=== PATIENT | female | born 1955 | race Hispanic/Latino ===

== ENCOUNTER 2018-11-21 00:28 | Emergency (ER) | payer OTHER ==
[2018-11-21 00:50] LABS: BASOPHILS % (AUTO) 1.1 % (0.0-5.0); EOSINOPHILS % (AUTO) 1.7 % (0.0-8.0); HEMATOCRIT 45.4 % (36-48); LYMPHOCYTES % (AUTO) 37.9 % (21.0-51.0); MEAN CORPUSCULAR HGB CONC 33.6 g/dL (32.0-36.0); MEAN CORPUSCULAR VOLUME 92.4 fL (79-99); MONOCYTES % (AUTO) 5.8 % (3.0-13.0); NEUTROPHILS % (AUTO) 53.5 % (40.0-77.0); NUCLEATED RED BLOOD CELLS 0.1 % (0.0-0.19); PLATELET COUNT (AUTO) 284 K/uL (130-400); RED BLOOD CELL COUNT(AUTO) 4.92 MIL/uL (4.00-5.50); RED CELL DISTRIBUTION WIDTH 13.7 % (11.0-15.5); WHITE BLOOD COUNT (AUTO) 6.7 K/uL (4.8-10.8)
[2018-11-21] MEDS ORDERED: METOPROLOL TARTRATE 1 MG/ML 5ML VIAL IV ONE ×4 (00:57→02:54)
[2018-11-21] MEDS ORDERED: SODIUM CHLORIDE 0.9% 500ML 500 ML IV ONE (00:58)
[2018-11-21 00:59] LABS: POTASSIUM 4.1 mmol/L (3.5-5.1)
[2018-11-21 01:04] LABS: ALBUMIN 4.2 g/dL (3.5-5.0); BILIRUBIN,TOTAL 0.2 mg/dL (0.2-1.0); TOTAL PROTEIN, SERUM 7.6 g/dL (6.0-8.3)
[2018-11-21] MEDS ORDERED: ASPIRIN 325 MG TABLET ONE (01:08)
[2018-11-21 01:10] LABS: INR 0.88 (0.85-1.15); PARTIAL THROMBOPLASTIN TIME 25.4 SEC (26.3-35.5); PROTHROMBIN TIME 9.3 SEC (9.6-11.6)
[2018-11-21 01:20] LABS: APPEARANCE,URINE CLEAR (CLEAR); BILIRUBIN,URINE NEGATIVE (NEGATIVE); COLOR,URINE YELLOW (YELLOW); GLUCOSE, URINE (UA) >=1000 mg/dL (NEGATIVE); KETONES,URINE NEGATIVE (NEGATIVE); LEUKOCYTE ESTERASE ,URINE NEGATIVE (NEGATIVE); NITRATE,URINE NEGATIVE (NEGATIVE); OCCULT BLOOD,URINE NEGATIVE (NEGATIVE); PH,URINE 7.5 (5.0-8.0); PROTEIN,URINE NEGATIVE (NEGATIVE); UROBILINOGEN,URINE 0.2 mg/dL (0.2-1.0)
[2018-11-21 01:28] LABS: AMPHET/METH SCREEN,URINE NEGATIVE (NEGATIVE); BARBITURATE SCREEN, URINE NEGATIVE (NEGATIVE); BENZODIAZEPINES SCREEN,URINE NEGATIVE (NEGATIVE); CANNABINOID SCREEN,URINE NEGATIVE (NEGATIVE); COCAINE SCREEN,URINE NEGATIVE (NEGATIVE); OPIATE SCREEN,URINE NEGATIVE (NEGATIVE); PHENCYCLIDINE SCREEN,URINE NEGATIVE (NEGATIVE)
[2018-11-21 01:29] LABS: BACTERIA,URINE Rare /HPF (None Seen); RBC,URINE 0-1 /HPF (0-1); SQUAMOUS EPITHELIAL CELL,UR 0-2 /HPF (0-2); WBC,URINE 0-1 /HPF (0-1)
[2018-11-21] MEDS ORDERED: ONDANSETRON HCL 4 MG/2 ML VIAL ONE (03:09)
[2018-11-21] MEDS ORDERED: MIDAZOLAM HCL 5 MG/ML 2ML VIAL IV ONE (03:09)
[2018-11-21] MEDS ORDERED: SODIUM CHLORIDE 0.9% 1000ML 1,000 ML IV ONE (03:10)
[2018-11-21] MEDS ORDERED: MORPHINE SULFATE 4 MG/1ML SYG ONE (03:10)
== END 2018-11-21 05:41 | disposition home or self-care (01) ==
LOC: EDH 00:28
DX: I48.91 Unspecified atrial fibrillation (principal); E11.9 Type 2 diabetes mellitus without complications; I10 Essential (primary) hypertension
CPT/HCPCS: 36415; 71045; 80053; 80305; 81001; 82550; 83880; 84484 ×2; 85025; 85610; 85730; 93005 ×2; 96374; 96375; 99285; J2250; J2270; J2405; J3490 ×4; J7030; J7040

== ENCOUNTER 2018-11-29 23:43 | Observation (INO) | payer OTHER ==
[~2018-11-29] VITALS: Ht 167.6 cm; Wt 77.1 kg
[2018-11-30 00:25] LABS: BASOPHILS % (AUTO) 0.7 % (0.0-5.0); EOSINOPHILS % (AUTO) 1.3 % (0.0-8.0); HEMATOCRIT 39.8 % (36-48); LYMPHOCYTES % (AUTO) 35.7 % (21.0-51.0); MEAN CORPUSCULAR HEMOGLOBIN 31.3 pg (27.0-33.0); MEAN CORPUSCULAR VOLUME 92.1 fL (79-99); MONOCYTES % (AUTO) 6.1 % (3.0-13.0); NEUTROPHILS % (AUTO) 56.2 % (40.0-77.0); PLATELET COUNT (AUTO) 270 K/uL (130-400); RED BLOOD CELL COUNT(AUTO) 4.32 MIL/uL (4.00-5.50); RED CELL DISTRIBUTION WIDTH 13.7 % (11.0-15.5); WHITE BLOOD COUNT (AUTO) 6.6 K/uL (4.8-10.8)
[2018-11-30 00:37] LABS: ALBUMIN 4.2 g/dL (3.5-5.0); CREATININE 1.1 mg/dL (0.5-1.5); POTASSIUM 3.7 mmol/L (3.5-5.1)
[2018-11-30 00:39] LABS: APPEARANCE,URINE Clear (CLEAR); BILIRUBIN,URINE Negative (NEGATIVE); COLOR,URINE Yellow (YELLOW); GLUCOSE, URINE (UA) >=1000 mg/dL (NEGATIVE); KETONES,URINE Negative (NEGATIVE); LEUKOCYTE ESTERASE ,URINE Negative (NEGATIVE); NITRATE,URINE Negative (NEGATIVE); OCCULT BLOOD,URINE Negative (NEGATIVE); PROTEIN,URINE Negative (NEGATIVE); UROBILINOGEN,URINE 0.2 mg/dL (0.2-1.0)
[2018-11-30 00:48] LABS: BILIRUBIN,TOTAL 0.2 mg/dL (0.2-1.0)
[2018-11-30 00:53] LABS: INR 0.92 (0.85-1.15); PARTIAL THROMBOPLASTIN TIME 25.9 SEC (26.3-35.5); PROTHROMBIN TIME 9.7 SEC (9.6-11.6)
[2018-11-30 01:03] LABS: BACTERIA,URINE Rare /HPF (None Seen); RBC,URINE 0-1 /HPF (0-1); WBC,URINE 0-1 /HPF (0-1)
[2018-11-30 01:34] LABS: AMPHET/METH SCREEN,URINE NEGATIVE (NEGATIVE); BARBITURATE SCREEN, URINE NEGATIVE (NEGATIVE); BENZODIAZEPINES SCREEN,URINE NEGATIVE (NEGATIVE); CANNABINOID SCREEN,URINE NEGATIVE (NEGATIVE); COCAINE SCREEN,URINE NEGATIVE (NEGATIVE); OPIATE SCREEN,URINE NEGATIVE (NEGATIVE); PHENCYCLIDINE SCREEN,URINE NEGATIVE (NEGATIVE)
[2018-11-30] MEDS ORDERED: ACETAMINOPHEN 325 MG TAB PO PRN (04:00)
[2018-11-30] MEDS ORDERED: ACETAMINOPHEN ELIXIR 650 MG/20.3 ML UDCUP ONE (06:33)
[2018-11-30] MEDS ORDERED: ASPIRIN 325 MG TABLET ONE (08:56)
[2018-11-30] MEDS ORDERED: FAMOTIDINE 20MG TAB 20 MG TAB ONE (08:56)
[2018-11-30] MEDS ORDERED: ENOXAPARIN SODIUM 40 MG/0.4 ML SYRINGE SQ ONE (08:56)
[2018-11-30] MEDS: ENOXAPARIN SODIUM 40 MG/0.4 ML SYRINGE SQ SCH (09:00)
[2018-11-30] MEDS: FAMOTIDINE 20MG TAB 20 MG TAB PO SCH ×2 (09:00→19:19)
[2018-11-30] MEDS: ASPIRIN 325 MG TABLET PO SCH (09:00)
[2018-11-30] MEDS ORDERED: ACETAMINOPHEN EXTRA STRENGTH 500 MG TABLET ONE (14:04)
[2018-11-30] MEDS: INSULIN HUMULIN R 100 UNIT/ML 3ML SQ SCH ×2 (16:16→21:00)
[2018-11-30 16:30] VITALS: BP 131/80
[2018-11-30 19:15] VITALS: BP 108/69
[2018-11-30] MEDS ORDERED: KETOROLAC TROMETHAMINE 15MG/ML ONE (20:50)
[2018-11-30] MEDS ORDERED: KETOROLAC TROMETHAMINE 15MG/ML IM SCH (21:45)
[2018-11-30 23:49] VITALS: BP 106/73
--- NOTE | 2018-12-01 | NUR ---
REPORT RECEIVED FROM Dre RIZZO RN. Addendum: 12/01/18 at 0025 by NICOLAS GROSSMAN RN RN Amended: Links added.
[2018-12-01 04:00] VITALS: BP 124/73
[2018-12-01] MEDS: INSULIN HUMULIN R 100 UNIT/ML 3ML SQ SCH ×4 (05:49→20:44)
[2018-12-01 08:10] VITALS: BP 124/72
[2018-12-01] MEDS: ASPIRIN 325 MG TABLET PO SCH (09:10)
[2018-12-01] MEDS: ENOXAPARIN SODIUM 40 MG/0.4 ML SYRINGE SQ SCH (09:11)
[2018-12-01] MEDS: FAMOTIDINE 20MG TAB 20 MG TAB PO SCH (09:11)
[2018-12-01] MEDS: CLOPIDOGREL BISULFATE 75 MG TAB PO SCH (09:11)
[2018-12-01 11:10] VITALS: BP 135/77
[2018-12-01] MEDS ORDERED: PANT40TA PO ×2 (12:04→12:08)
[2018-12-01] MEDS ORDERED: PANTOPRAZOLE 40 MG/VIAL IVP SCH (12:30)
[2018-12-01] MEDS: PHARMACY COMMUNICATION MISC SCH ×2 (12:30→20:30)
--- NOTE | 2018-12-01 14:44 | NUR ---
DCP CM met with pt discussed dc plans. Pt is independent prior to admission, lives at home alone, daughter lives close by. Denies any equipments/services. Pt feels safe to go back home, still drives and works, daughter able to assist with transportation and needs as necessary. DC plan to home once stable. CM to cont to follow up. Addendum: 12/01/18 at 1445 by EILEEN PICKENS LVN CM Amended: Links added.
[2018-12-01] MEDS ORDERED: PANTOPRAZOLE SODIUM 40 MG TABLET.DR PO ONE (15:05)
[2018-12-01 15:58] VITALS: BP 119/62
[2018-12-01 19:30] VITALS: BP 126/79
[2018-12-01] MEDS: PANTOPRAZOLE SODIUM 40 MG TABLET.DR PO SCH (19:54)
[2018-12-01] MEDS ORDERED: TOLT2TAB PO (21:08)
[2018-12-01] MEDS ORDERED: RANI150T7 PO (21:08)
[2018-12-01] MEDS ORDERED: ALPR0.255 PO (21:08)
[2018-12-01] MEDS ORDERED: AMLO5TAB4 PO (21:08)
[2018-12-01] MEDS ORDERED: ROSU5TAB12 PO (21:08)
[2018-12-01] MEDS ORDERED: LOSA50TA64 PO (21:08)
[2018-12-01] MEDS ORDERED: EMPA25TA PO (21:08)
[2018-12-01] MEDS ORDERED: HYDR25TA PO (21:08)
[2018-12-01 23:35] VITALS: BP 119/67
[2018-12-02 03:25] VITALS: BP 115/79
[2018-12-02] MEDS: PHARMACY COMMUNICATION MISC SCH ×2 (04:03→11:46)
[2018-12-02 05:38] LABS: MEAN CORPUSCULAR HEMOGLOBIN 32.1 pg (27.0-33.0); MEAN CORPUSCULAR HGB CONC 34.4 g/dL (32.0-36.0); MEAN CORPUSCULAR VOLUME 93.3 fL (79-99); PLATELET COUNT (AUTO) 233 K/uL (130-400); RED CELL DISTRIBUTION WIDTH 13.6 % (11.0-15.5); WHITE BLOOD COUNT (AUTO) 5.5 K/uL (4.8-10.8)
[2018-12-02 05:43] LABS: POTASSIUM 3.8 mmol/L (3.5-5.1)
[2018-12-02] MEDS: INSULIN HUMULIN R 100 UNIT/ML 3ML SQ SCH ×2 (05:43→11:30)
[2018-12-02 07:41] VITALS: BP 155/65
--- NOTE | 2018-12-02 08:49 | NUR ---
CHART CHECK COMPLETED. Pt IS A 63 YEAR OLD FEMALE ADMITTED SECONDARY TO CHEST PAIN AND POSSIBLE TIA. Pt HAS A PAST MEDICAL HISTORY SIGNIFICANT FOR AFIB WITH RVR, HYPERTENSION, DM, HYPERLIPIDEMIA. CT HEAD WAS NEGATIVE. Pt AAOX3 AND COOPERATIVE WITH NO OVERT S/S OF ASPIRATION REPORTED BY NURSING. SKILLED SPEECH THERAPY IS NOT RECOMMENDED AT THIS TIME. Addendum: 12/02/18 at 0852 by AASHISH NEGRO [facility] Amended: Links added.
[2018-12-02] MEDS: ENOXAPARIN SODIUM 40 MG/0.4 ML SYRINGE SQ SCH (09:00)
[2018-12-02] MEDS: ASPIRIN 325 MG TABLET PO SCH (09:07)
[2018-12-02] MEDS: CLOPIDOGREL BISULFATE 75 MG TAB PO SCH (09:07)
[2018-12-02] MEDS: PANTOPRAZOLE SODIUM 40 MG TABLET.DR PO SCH (09:07)
[2018-12-02 11:26] VITALS: BP 125/72
== END 2018-12-02 13:32 | disposition home or self-care (01) ==
LOC: EDH 23:43 → EDHIP 11-30 03:48 → 4AH 11-30 15:48
PROVIDERS: ADMIT Internal Medicine; ATTEND Internal Medicine
DX: R07.89 Other chest pain (principal); E11.9 Type 2 diabetes mellitus without complications; E78.5 Hyperlipidemia, unspecified; R47.81 Slurred speech; I10 Essential (primary) hypertension; I48.0 Paroxysmal atrial fibrillation; K21.9 Gastro-esophageal reflux disease without esophagitis; Z79.899 Other long term (current) drug therapy
CPT/HCPCS: 36415 ×2; 70450; 70551; 71045; 80048; 80053; 80305; 81001; 82550; 82948 ×9; 84484 ×4; 85025; 85027; 85610; 85730; 93005; 93880; 96372; 99284; C8929; C9113; G0378 ×57; J1650 ×2; J1885

== ENCOUNTER 2019-02-02 10:47 | Emergency (ER) | payer OTHER ==
[~2019-02-02 10:47] MED LIST: ALPR0.255 PO; AMLO5TAB4 PO; EMPA25TA PO; HYDR25TA PO; LOSA50TA64 PO; PANT40TA PO; RANI150T7 PO; ROSU5TAB12 PO; TOLT2TAB PO
[2019-02-02] MEDS ORDERED: KETOROLAC TROMETHAMINE 30MG/ML ONE (11:05)
[2019-02-02] MEDS ORDERED: MORPHINE SULFATE 4 MG/1ML SYG ONE (12:13)
[2019-02-02] MEDS ORDERED: ONDANSETRON HCL 4 MG/2 ML VIAL ONE (12:13)
== END 2019-02-02 14:11 | disposition home or self-care (01) ==
LOC: EDH 10:47
DX: S39.012A Strain of muscle, fascia and tendon of lower back, initial encounter (principal); I48.91 Unspecified atrial fibrillation; E11.9 Type 2 diabetes mellitus without complications; I10 Essential (primary) hypertension; E78.00 Pure hypercholesterolemia, unspecified; X50.0XXA Overexertion from strenuous movement or load, initial encounter; Y93.89 Activity, other specified; Y92.89 Other specified places as the place of occurrence of the external cause; Y99.8 Other external cause status
CPT/HCPCS: 72131; 82948; 96374; 96375; 99284; J1885; J2270; J2405

== ENCOUNTER → 2022-07-27 | Outpatient (CLI) | payer OTHER ==
[~2022-07-27] MED LIST changes: -TOLT2TAB PO; +TOLT2TAB20 PO
== END | disposition home or self-care (01) ==
LOC: SLP 21:12
PROVIDERS: ATTEND Internal Medicine Cardiovascular Disease
DX: G47.33 Obstructive sleep apnea (adult) (pediatric) (principal)
CPT/HCPCS: 95811

== ENCOUNTER 2022-11-08 17:55 | Emergency (ER) | payer OTHER ==
[~2022-11-08] VITALS: Ht 157.5 cm; Wt 84.8 kg
[2022-11-08 18:42] LABS: BASOPHILS % (AUTO) 0.4 % (0.0-5.0); EOSINOPHILS % (AUTO) 1.7 % (0.0-8.0); HEMATOCRIT 43.6 % (36-48); LYMPHOCYTES % (AUTO) 28.5 % (21.0-51.0); MEAN CORPUSCULAR HEMOGLOBIN 30.3 pg (27.0-33.0); MEAN CORPUSCULAR HGB CONC 34.6 g/dL (32.0-36.0); MEAN CORPUSCULAR VOLUME 87.6 fL (79-99); MONOCYTES % (AUTO) 5.1 % (3.0-13.0); NEUTROPHILS % (AUTO) 61.6 % (40.0-77.0); PLATELET COUNT (AUTO) 310 K/uL (130-400); RED BLOOD CELL COUNT(AUTO) 4.98 MIL/uL (4.00-5.50); RED CELL DISTRIBUTION WIDTH 12.3 % (11.0-15.5); WHITE BLOOD COUNT (AUTO) 11.7 K/uL (4.8-10.8)
[2022-11-08] MEDS ORDERED: ASPIRIN 325MG TAB ONE (18:46)
[2022-11-08 18:57] LABS: CREATININE 1.2 mg/dL (0.5-1.5)
[2022-11-08] MEDS ORDERED: NITROGLYCERIN 1GM OINT 1 INCH/1GM TD ONE (19:00)
[2022-11-08 19:03] LABS: ALBUMIN 3.8 g/dL (3.5-5.0); MAGNESIUM 1.9 mg/dL (1.80-2.40); TOTAL PROTEIN, SERUM 6.8 g/dL (6.0-8.3)
[2022-11-08] MEDS ORDERED: IOHEXOL 350 MG/ML 100ML INFUS..BTL IV ONE (19:48)
[2022-11-08 21:27] LABS: ABG HCO3 20.3 mmol/L (21.0-28.0); ABG OXYGEN SATURATION 96.4 % (95.0-99.0); ABG PCO2 32 mmHg (32-45)
[2022-11-08] MEDS ORDERED: 0.9%NACL 1000ML 1,000 ML IV ONE (22:00)
[2022-11-08 22:12] LABS: APPEARANCE,URINE CLEAR (CLEAR); BILIRUBIN,URINE NEGATIVE (NEGATIVE); COLOR,URINE LIGHT-YELLOW (YELLOW); GLUCOSE, URINE (UA) 200 mg/dL (NEGATIVE); KETONES,URINE NEGATIVE (NEGATIVE); LEUKOCYTE ESTERASE ,URINE 500 Leu/uL (NEGATIVE); NITRATE,URINE NEGATIVE (NEGATIVE); OCCULT BLOOD,URINE NEGATIVE (NEGATIVE); PH,URINE 5.5 (5.0-8.0); PROTEIN,URINE 20 mg/dL (NEGATIVE); UROBILINOGEN,URINE 0.2 mg/dL (0.2-1.0)
[2022-11-08 22:20] LABS: BACTERIA,URINE FEW /HPF (None Seen); MUCUS,URINE RARE LPF (None Seen); SQUAMOUS EPITHELIAL CELL,UR MOD /HPF (0-2); WBC,URINE 51-100 /HPF (0-1); YEAST,URINE BUDDING RARE /HPF (None Seen)
[2022-11-08 22:45] VITALS: BP 131/60; PULSE 84; RESP 16
[2022-11-08] MEDS ORDERED: CEFU500T67 PO (22:46)
[2022-11-08] MEDS ORDERED: ALBU90AE2 IH (22:46)
[2022-11-08] MEDS ORDERED: CEFTRIAXONE 1G VIAL IVPB ONE (23:00)
== END 2022-11-08 23:04 | disposition home or self-care (01) ==
LOC: EDH 17:55
DX: N39.0 Urinary tract infection, site not specified (principal); R06.00 Dyspnea, unspecified; U09.9 Post COVID-19 condition, unspecified; I10 Essential (primary) hypertension; E78.00 Pure hypercholesterolemia, unspecified; E11.9 Type 2 diabetes mellitus without complications; K21.9 Gastro-esophageal reflux disease without esophagitis; Z79.899 Other long term (current) drug therapy
CPT/HCPCS: 99285; 96365; 71270; 71045; 83735; 84484 ×3; 80053; 82803; 83880; 85025; 87088; 83605; 81001; 36415; 93005 ×2; 36600; J0696; Q9967

== ENCOUNTER → 2022-11-13 | Outpatient (CLI) | payer OTHER ==
[~2022-11-13] MED LIST changes: +ALBU90AE2 IH; +CEFU500T67 PO
== END | disposition home or self-care (01) ==
LOC: RAH 13:47
PROVIDERS: ATTEND Internal Medicine
DX: I51.7 Cardiomegaly (principal); I44.7 Left bundle-branch block, unspecified; R06.09 Other forms of dyspnea; Z86.79 Personal history of other diseases of the circulatory system; I31.39 Other pericardial effusion (noninflammatory)
CPT/HCPCS: 93306

== ENCOUNTER → 2023-04-23 | Outpatient (CLI) | payer OTHER | END | disposition home or self-care (01) | LOC: OIH 09:02 | PROVIDERS: ATTEND Internal Medicine Cardiovascular Disease | DX: Z13.6 Encounter for screening for cardiovascular disorders (principal) | CPT/HCPCS: 75571 ==

== ENCOUNTER → 2023-05-01 | Outpatient (CLI) | payer OTHER | END | disposition home or self-care (01) | LOC: SHCH 13:27 | PROVIDERS: ATTEND Internal Medicine Cardiovascular Disease | DX: I11.9 Hypertensive heart disease without heart failure (principal); I25.10 Atherosclerotic heart disease of native coronary artery without angina pectoris; E11.9 Type 2 diabetes mellitus without complications | CPT/HCPCS: 93306 ==

== ENCOUNTER → 2023-05-05 | Outpatient (CLI) | payer OTHER | END | disposition home or self-care (01) | LOC: SHCH 11:13 | PROVIDERS: ATTEND Internal Medicine Cardiovascular Disease | DX: I10 Essential (primary) hypertension (principal) | CPT/HCPCS: 93975 ==

== ENCOUNTER 2023-05-10 23:01 | Emergency (ER) | payer OTHER ==
[~2023-05-10] VITALS: Ht 162.6 cm; Wt 76.2 kg
[2023-05-10] MEDS ORDERED: AMIODARONE 150MG VIAL ONE (23:11)
[2023-05-10] MEDS ORDERED: DILTIAZEM 125 MG/25 ML INJ IV ONE (23:12)
[2023-05-10 23:15] LABS: BASOPHILS # (AUTO) 0.05 K/uL (0.00-0.20); BASOPHILS % (AUTO) 0.8 % (0.0-5.0); EOSINOPHILS # (AUTO) 0.09 K/uL (0.00-0.70); EOSINOPHILS % (AUTO) 1.4 % (0.0-8.0); HEMATOCRIT 40.6 % (36-48); IMMATURE GRANULOCYTE ABSOLUTE 0.04 K/uL (0-1); LYMPHOCYTES # (AUTO) 2.5 K/uL (1.0-4.8); LYMPHOCYTES % (AUTO) 37.8 % (21.0-51.0); MEAN CORPUSCULAR HEMOGLOBIN 31.9 pg (27.0-33.0); MEAN CORPUSCULAR HGB CONC 34.2 g/dL (32.0-36.0); MEAN CORPUSCULAR VOLUME 93.1 fL (79-99); MONOCYTES # (AUTO) 0.5 K/uL (0.1-1.0); MONOCYTES % (AUTO) 7.1 % (3.0-13.0); NEUTROPHILS # (AUTO) 3.4 K/uL (1.8-7.7); NEUTROPHILS % (AUTO) 52.3 % (40.0-77.0); PLATELET COUNT (AUTO) 257 K/uL (130-400); RED BLOOD CELL COUNT(AUTO) 4.36 MIL/uL (4.00-5.50); RED CELL DISTRIBUTION WIDTH 12.9 % (11.0-15.5); WHITE BLOOD COUNT (AUTO) 6.6 K/uL (4.8-10.8)
[2023-05-10] MEDS ORDERED: DILTIAZEM 25MG INJ IVP STA (23:22)
[2023-05-10 23:24] LABS: APPEARANCE,URINE CLEAR (CLEAR); BILIRUBIN,URINE NEGATIVE (NEGATIVE); COLOR,URINE COLORLESS (YELLOW); GLUCOSE, URINE (UA) 500 mg/dL (NEGATIVE); KETONES,URINE NEGATIVE (NEGATIVE); LEUKOCYTE ESTERASE ,URINE 75 Leu/uL (NEGATIVE); NITRATE,URINE NEGATIVE (NEGATIVE); OCCULT BLOOD,URINE NEGATIVE (NEGATIVE); PROTEIN,URINE NEGATIVE (NEGATIVE); UROBILINOGEN,URINE 0.2 mg/dL (0.2-1.0)
[2023-05-10 23:25] LABS: ADD UA MICROSCOPIC YES
[2023-05-10 23:27] LABS: BACTERIA,URINE RARE /HPF (None Seen); MUCUS,URINE RARE LPF (None Seen); RBC,URINE 0-1 /HPF (0-1); SQUAMOUS EPITHELIAL CELL,UR MOD /HPF (0-2)
[2023-05-10] MEDS ORDERED: DILTIAZEM 125 MG/25 ML INJ 125 MG in 0.9%NACL 100ML 100 ML IV SCH (23:30)
[2023-05-10] MEDS ORDERED: AMIODARONE 900MG VIAL 900 MG in DEXTROSE 5%-WATER 500 ML IV SCH (23:30)
[2023-05-10 23:32] LABS: INR < 0.93 (0.85-1.15); PROTHROMBIN TIME 9.7 SEC (9.6-11.6)
[2023-05-10 23:37] LABS: CREATININE 1.1 mg/dL (0.5-1.5); POTASSIUM 4.6 mmol/L (3.5-5.1)
[2023-05-10 23:42] LABS: ALBUMIN 3.9 g/dL (3.5-5.0); BILIRUBIN,TOTAL 0.2 mg/dL (0.2-1.0); TOTAL PROTEIN, SERUM 6.9 g/dL (6.0-8.3)
[2023-05-10 23:49] LABS: B-TYPE NATRIURETIC PEPTIDE 296 pg/mL (0-100)
[2023-05-11] MEDS ORDERED: HYDRALAZINE 20MG/ML VIAL IV PRN (01:00)
[2023-05-11] MEDS ORDERED: LABETALOL 20MG SYG IV PRN (01:00)
[2023-05-11] MEDS ORDERED: CLONIDINE HCL 0.1 MG TABLET PO PRN (01:00)
[2023-05-11] MEDS ORDERED: HYDROCODONE/ACETAMINOPHEN 5/325 MG TAB PO PRN (01:00)
[2023-05-11] MEDS ORDERED: ONDANSETRON 4MG INJ IVP PRN (01:00)
[2023-05-11] MEDS ORDERED: ACETAMINOPHEN 325 MG TAB PO PRN (01:00)
[2023-05-11] MEDS ORDERED: ACETAMINOPHEN 650 MG SUPPOSITORY RC PRN (01:00)
[2023-05-11] MEDS ORDERED: ENOXAPARIN SODIUM 40 MG/0.4 ML SYRINGE SQ SCH (01:00)
[2023-05-11 01:10] VITALS: BP 125/74; PULSE 65; RESP 18; O2SAT 99
[2023-05-11] MEDS ORDERED: ASCORBIC ACID 500 MG TAB PO SCH (09:00)
[2023-05-11] MEDS ORDERED: POLYETHYLENE GLYCOL 3350 17 GM POWD.PACK PO SCH (09:00)
== END 2023-05-11 01:12 | disposition home or self-care (01) ==
LOC: EDH 23:01
DX: I48.91 Unspecified atrial fibrillation (principal); I10 Essential (primary) hypertension; E11.9 Type 2 diabetes mellitus without complications; E78.00 Pure hypercholesterolemia, unspecified; K21.9 Gastro-esophageal reflux disease without esophagitis; Z79.899 Other long term (current) drug therapy
CPT/HCPCS: 99291; 96374; 82550; 84484; 80053; 83880; 85025; 85610; 87088; 81001; 36415; 71045; 93005; J3490; J0282

== ENCOUNTER → 2023-05-22 | Outpatient (CLI) | payer OTHER ==
[~2023-05-22] MED LIST changes: +REGADENOSON 0.4 MG/5 ML PF SYG IVP ONE
== END | disposition home or self-care (01) ==
LOC: SHCH 08:10
PROVIDERS: ATTEND Internal Medicine Cardiovascular Disease
DX: I48.0 Paroxysmal atrial fibrillation (principal); R00.2 Palpitations; R07.9 Chest pain, unspecified
CPT/HCPCS: 78452; 96374; 93017; J2785; A9500 ×2

== ENCOUNTER → 2024-08-31 | Outpatient (CLI) | payer OTHER ==
[~2024-08-31] MED LIST changes: -ALBU90AE2 IH; +ALBU90AE3 IH; -REGADENOSON 0.4 MG/5 ML PF SYG IVP ONE; -ROSU5TAB12 PO; +ROSU5TAB51 PO
--- NOTE | 2024-09-01 08:53 | HMCSR ---
APPROVED REPORT EXAM: Two-dimensional and M-mode echocardiogram with Doppler and color Doppler. 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 Contrast Details Indication: Rule out PFO Agent/Amount Used: Agitated Saline 2D Dimensions RVDd3.2 cmLVEF(%)58.2 (>50%)LVEF(%, simp.)54 % IVSd1.1 (0.7-1.1cm)FS(%)30 %LA ESV INDEX (BP)27.78 mL/m2 LVDd4.1 (3.8-5.6cm)LA (2D)3.8 (1.6-4.0cm) PWd1.2 (0.7-1.1cm)Ao Root(2D)3.1 (2.0-3.7cm) IVSs1.2 cmLVOT diam2.0 (1.8-2.4cm) LVDs2.9 (2.5-4.0cm)IVC diam1.7 cm PWs1.6 cm M-Mode Dimensions EPSS1.1 cm LA (MM)4.0 (1.6-4.0cm) Ao Root(MM)3.1 (2.0-3.7cm) Aortic Valve AoV Vmax1.1 m/Mao Peak GR4.5 mmHgLVOT Vmax0.8 m/s AoV VTI0.3 mAo Mean GR2.7 mmHgLVOT VTI0.19 m RAMILA (VMAX)2.3 cm2AVA (VTI) 2.3 cm2 Mitral Valve MV E Vmax65.3 cm/sDECEL Rzvz792 ms MV A Vmax81.6 cm/sP 1/2 T37 ms E/A ratio0.8MVA (PHT)6.0 cm2 TDI E/E' Xqdzue08.3E/E' Lateral9.3 Medial E' Peak V4.00 cm/sLateral E' Peak V7.00 cm/s Pulmonary Valve PV Vmax0.8 m/s Tricuspid Valve TR Vmax2.1 m/sRAP (EST) 3 teXkROYX70.3 mmHg TR Peak GR19.3 mmHg Left Ventricle The left ventricle is normal size. There is normal LV segmental wall motion. There is normal left navya tricular wall thickness. The LVEF is > 55%. E/A flow reversal noted. Stage I diastolic dysfunction. Right Ventricle The right ventricle is normal size. The right ventricular systolic function is normal. Atria The left atrium size is normal. Negative bubble study. No evidence of PFO/ASD by agitated saline. The right atrium size is normal. Aortic Valve The aortic valve is normal in structure. No aortic regurgitation is present. There is no aortic valvu lar stenosis. Mitral Valve The mitral valve is normal in structure. There is mild mitral valve regurgitation noted. There is no mitral valve stenosis. Tricuspid Valve The tricuspid valve is normal in structure. There is trace of tricuspid valve regurgitation noted. Pulmonic Valve The pulmonary valve is normal in structure. There is no pulmonic valvular regurgitation. Great Vessels The aortic root is normal in size. The IVC is normal in size and collapses >50% with inspiration. Pericardium There is no pericardial effusion. Other Information Quality : Adequate Conclusion The LVEF is > 55%. E/A flow reversal noted. Stage I diastolic dysfunction. There is mild mitral valve regurgitation noted.
== END | disposition home or self-care (01) ==
LOC: RAH 13:14
PROVIDERS: ATTEND Internal Medicine Cardiovascular Disease
DX: I34.0 Nonrheumatic mitral (valve) insufficiency (principal); G45.0 Vertebro-basilar artery syndrome
CPT/HCPCS: 93306; A4216